=== PATIENT | female | born 1965 ===

== ENCOUNTER 2024-03-27 09:44 | Day surgery (SDC) | payer OTHER ==
[2024-03-27] MEDS: Lactated Ringers 1,000 ML IV SCH (09:55)
[2024-03-27] MEDS ORDERED: Sodium Chloride 0.9% 10 ML Syringe FLUSH PRN (10:12)
[2024-03-27] MEDS ORDERED: fentaNYL 100 MCG/2 ML SDV ONE (10:13)
[2024-03-27] MEDS ORDERED: Ondansetron 4 MG/2 ML SDV ONE (10:13)
[2024-03-27] MEDS ORDERED: Midazolam 1 MG/ML 2 ML SDV ONE (10:13)
[2024-03-27] MEDS ORDERED: Propofol 200 MG/20 ML SDV ONE (10:13)
[2024-03-27] MEDS ORDERED: Ketorolac 30 MG/ML SDV ONE (10:13)
[2024-03-27] MEDS ORDERED: ceFAZolin 2 GM Vial ONE (10:13)
[2024-03-27] MEDS ORDERED: Lidocaine 1% 4 ML ONE (10:13)
[2024-03-27] MEDS ORDERED: Dexamethasone 4 MG/ML 5 ML MDV ONE (10:13)
[2024-03-27] MEDS ORDERED: Ondansetron 4 MG/2 ML SDV IVPUSH PRN (10:18)
[2024-03-27] MEDS ORDERED: fentaNYL 100 MCG/2 ML SDV IVPUSH PRN (10:18)
[2024-03-27] MEDS ORDERED: HYDROmorphone 0.5 MG/0.5 ML Syringe IVPUSH PRN (10:18)
[2024-03-27] MEDS ORDERED: EPINEPHrine 1 MG/ML SDV ONE (11:16)
[2024-03-27] MEDS: Bupivacaine 0.25% 10 ML SDV ONE ×2 (12:04→12:10)
[2024-03-27] MEDS: Triamcinolone Acetonide 40 MG/ML 1 ML SDV ONE (12:10)
[2024-03-27] MEDS: Acetaminophen/HYDROcodone 325-5 MG Tab PO ONE (13:30)
[2024-03-27] MEDS ORDERED: Sodium Chloride 0.9% 10 ML Syringe FLUSH SCH (21:00)
== END 2024-03-27 13:35 | disposition home or self-care (01) ==
LOC: JD.SDS 09:44
PROVIDERS: ATTEND Orthopaedic Surgery
DX: S83.241A Other tear of medial meniscus, current injury, right knee, initial encounter (principal); M65.842 Other synovitis and tenosynovitis, left hand; X58.XXXA Exposure to other specified factors, initial encounter
CPT/HCPCS: 20550; 29881; A9270; J0171; J0665; J0690; J1100; J1885; J2250; J2405; J2704; J3010; J3301; J7120; 01400; J3490